=== PATIENT | male | born 1955 | race Two or more races ===

== ENCOUNTER → 2024-12-20 | Outpatient (BNVA) | payer MEDICARE, MEDICAID, SELFPAY | END | disposition home or self-care (01) | PROVIDERS: PCP Family Medicine; Referring Provider Family Medicine; Visit Provider Student in an Organized Health Care Education/Training Program | DX: Z76.89 Persons encountering health services in other specified circumstances (principal) | CPT/HCPCS: 99212; G0463 ==

== ENCOUNTER 2025-02-13 08:41 | Outpatient (AMB) | payer MEDICARE, MEDICAID, SELFPAY ==
[2025-02-13 08:57] VITALS: BP 128/75; PULSE 72; RESP 18; TEMP 36.6; O2SAT 93; BMI 38.9
--- NOTE | 2025-02-13 08:57 | PD.ORTHCLVIS ---
Vital signs 02/13/25 08:57 Height 1.65 m Height Method Stated Weight 106.141 kg Weight Measurement Method Standing Scale BMI 38.9 BP 128/75 Blood Pressure Source Automatic Cuff Blood Pressure Location Left Upper Arm Position Sitting Respiration 18 Pulse 72 Pulse Source Monitor Temp 97.8 F Temp Source Temporal Artery Scan Pulse Oximetry (%) 93 L Oxygen Delivery Method Room Air Med/Allergies Allergies & Medications Allergies No Known Allergies Allergy (Verified 02/13/25 08:58) Medication Reconciliation aspirin 81 mg tablet,delayed release 81 mg PO QDAY 06/29/18 [History Confirmed 02/13/25] atorvastatin 80 mg tablet 80 mg PO QDAY 06/29/18 [History Confirmed 02/13/25] carvedilol 6.25 mg tablet 6.25 mg PO BID 06/29/18 [History Confirmed 02/13/25] lisinopril 5 mg tablet 5 mg PO QDAY 06/29/18 [History Confirmed 02/13/25] tamsulosin 0.4 mg capsule 0.4 mg PO QDAY 06/29/18 [History Confirmed 02/13/25] famotidine 20 mg tablet 20 mg PO BID 06/22/23 [History Confirmed 02/13/25] metformin 1,000 mg tablet 1,000 mg PO BID 06/22/23 [History Confirmed 02/13/25] dapagliflozin propanediol 5 mg tablet (Farxiga) 5 mg PO QAM 02/13/25 [History Confirmed 02/13/25] finasteride 5 mg tablet 5 mg PO QDAY 02/13/25 [History Confirmed 02/13/25] ibuprofen 800 mg tablet 800 mg PO Q8H 02/13/25 [History Confirmed 02/13/25] meloxicam 7.5 mg tablet 7.5 mg PO QDAY #45 tabs 02/13/25 [Rx] Exam Exam Patient is in no acute distress and is cooperative with the examination today. Breathing is nonlabored. In no respiratory distress. Patient has no paraspinal tenderness. Spinal deformity cannot be appreciated. The gait of the patient is nonantalgic Bilateral extremities were evaluated and demonstrates sensation intact to light touch. Palpable pedal pulses are present. No significant edema is present. Bilateral knees were examined and the patient has full strength and range of motion.. The left hip was examined. Patient was able to flex to 90 degrees, adduct to 30 degrees, abduct to 40 degrees, internally rotate to 20 degrees, and externally rotate to 20 degrees. Patient has a negative logroll. Stinchfield is negative. The patient is nontender diffusely to touch. The right hip was examined. Patient was able to flex to 90 degrees, adduct to 30 degrees, abduct to 40 degrees, internally rotate to 20 degrees, and externally rotate to 20 degrees. Patient has a negative logroll. The stinchfield is negative. X-rays demonstrate no significant arthritis at all. There is significant degenerative changes at L5-S1 Assessment and Plan Problem List (1) Back pain: Status: Acute Plan: Patient is a 69-year-old male with right buttocks and right low back pain. This been ongoing for a while. The patient has just started physical therapy and reports it is improving. His hip x-rays actually look very benign as well as hip examination. I am fairly certain that the pain is from his back. We recommend continued physical therapy and anti-inflammatories Advanced Care Planning Discussion Advance care planning discussed with:: patient Office Procedures GNS Level of Care Nursing/Assessment Patient Status: Initial/New Patient Nursing Assessment/Reassesment: Medication Reconciliation, Update PMH in EMR and Vital Signs Coordination of Care: Complex Care and Chronic Disease 1-5, Education Complex Pt/Fam, Consent,records obtained, informed consent, 1 Ins Authorization, Lab and Imaging orders, Results/Orders obtained and Staff clarify orders Special Needs: Language special needs New Patient Charge New Patient Point Assignment: 1124 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 Intake Visit Data Collection New Patient or Established: New Patient (never been to [facility]) Reason for Visit:: RIGHT HIP PAIN Seen by Clinical Staff ONLY (RN/MA): No 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 PCP or OBGYN visit in last 3 months: Yes Hx Now: No Do You Feel Safe at Home: Yes Authorities Contacted: N/A Questionairres Past Medical History Past Medical History Have you ever been diagnosed with any of the following: Neurological Problems Seizures: No Cardiology Problems Myocardial Infarction: Yes (X2 - 2014) Atherosclerotic Heart Disease: Yes Hypercholesterolemia: Yes Congestive Heart Failure: No Hypertension: Yes Respiratory Problems Chronic Obstructive Pulmonary Disease (COPD): No Smoking: No Smoking Exposure: No Genital/Urinary Problems Renal Disease: No Endocrine Problems Diabetes Mellitus Type 1: Yes Diabetes Mellitus Type 2: No Other Problems Blood Transfusions: No Blood Transfusion Reaction: No Anesthesia Reactions: No Subjective Visit Visit for: new patient and hip Immunization / Flu Flu Vaccine in the Last 12 Months: No Flu Vaccine Exclusion Criteria: Refused by Patient History of Present Illness Chief complaint: Right hip pain Date of injury / onset of symptoms: 3 MONTHS Dorian is a 69-year-old male with right buttocks and right low back pain. This been ongoing for 3 months. He has not had significant steroid treatment. He has tried physical therapy prior to session and reports that this helps quite a bit. He has no Difficulty putting on socks or shoes Personal History Occupation: [employer] Pain Pain level (0-10): 6 Pain duration: WITH MOVEMENT Pain location: outside (lateral), posterior and buttock Pain quality: dull and aching Pain timing: increases with activity Associated signs & symptoms: none Ambulatory data Ambulatory device: none Treatments Improvement with previous injections: No Number of Physical Therapy sessions: 2 Improvement with PT: Yes Improvement with NSAIDS: yes Review of Systems Review of Systems: All systems negative unless otherwise noted in HPI.
== END 2025-02-13 09:01 | disposition home or self-care (01) ==
LOC: HODSRG 08:41
PROVIDERS: PCP Family Medicine; Referring Provider Family Medicine; Supervising Provider Orthopaedic Surgery Adult Reconstructive Orthopaedic Surgery; Visit Provider Orthopaedic Surgery Adult Reconstructive Orthopaedic Surgery
DX: M54.50 Low back pain, unspecified (principal); I10 Essential (primary) hypertension; E78.00 Pure hypercholesterolemia, unspecified; I25.10 Atherosclerotic heart disease of native coronary artery without angina pectoris; E10.9 Type 1 diabetes mellitus without complications
CPT/HCPCS: 99204; G0463

== ENCOUNTER → 2025-02-24 | Outpatient (BNVA) | payer MEDICARE, MEDICAID, SELFPAY | END | disposition home or self-care (01) | PROVIDERS: PCP Family Medicine; Referring Provider Family Medicine; Visit Provider Urology | DX: N40.1 Benign prostatic hyperplasia with lower urinary tract symptoms (principal); N13.8 Other obstructive and reflux uropathy; Z46.6 Encounter for fitting and adjustment of urinary device; I10 Essential (primary) hypertension; E78.00 Pure hypercholesterolemia, unspecified; I25.10 Atherosclerotic heart disease of native coronary artery without angina pectoris; I25.2 Old myocardial infarction; E10.9 Type 1 diabetes mellitus without complications | CPT/HCPCS: 99212; G0463 ==

== ENCOUNTER → 2025-08-15 | Outpatient (BNVA) | payer MEDICARE, MEDICAID, SELFPAY | END | disposition home or self-care (01) | PROVIDERS: PCP Family Medicine; Referring Provider Family Medicine; Visit Provider Urology | DX: N40.1 Benign prostatic hyperplasia with lower urinary tract symptoms (principal); N13.8 Other obstructive and reflux uropathy; R35.0 Frequency of micturition; R30.0 Dysuria; I10 Essential (primary) hypertension; I25.10 Atherosclerotic heart disease of native coronary artery without angina pectoris; E66.9 Obesity, unspecified; E10.9 Type 1 diabetes mellitus without complications | CPT/HCPCS: 81003; 99212; 99213; G0463 ==